=== PATIENT | male | born 1960 | race Caucasian/White ===

== ENCOUNTER 2017-08-17 18:17 | Emergency (ER) | payer OTHER ==
[~2017-08-17] VITALS: Ht 170.2 cm; Wt 74.0 kg
[2017-08-17] MEDS ORDERED: FLEXERIL10 MG PO (19:48)
[2017-08-17 20:07] VITALS: BP 120/79
== END 2017-08-17 20:08 | disposition home or self-care (01) ==
LOC: EME 18:17
DX: M54.2 Cervicalgia (principal); M62.838 Other muscle spasm; V49.40XA Driver injured in collision with unspecified motor vehicles in traffic accident, initial encounter; Y92.410 Unspecified street and highway as the place of occurrence of the external cause
CPT/HCPCS: 99281; 99283